=== PATIENT | male | born 1955 | race Caucasian/White ===

== ENCOUNTER 2024-07-31 17:18 | Emergency (ER) | payer MEDICARE, MEDICAID ==
[~2024-07-31] VITALS: Ht 175.3 cm; Wt 94.0 kg
[~2024-07-31 17:18] MED LIST: ETOMIDATE 2MG/ML 10ML VIAL IV ONE
[2024-07-31 17:51] LABS: BASOPHILS % 0.9 % (0.0-2.0); EOSINOPHILS % 1.4 % (0.0-5.0); HEMATOCRIT. 52.7 % (42.0-52.0); HEMOGLOBIN. 17.5 g/dL (14.0-18.0); LYMPHOCYTES % 37.2 % (20.0-50.0); MEAN CORPUSCULAR HEMOGLOBIN 32.5 pg (28.0-32.0); MEAN CORPUSCULAR HGB CONC 33.3 g/dL (31.0-37.0); MEAN CORPUSCULAR VOLUME 97.7 fL (80.0-94.0); MONOCYTES % 7.7 % (2.0-8.0); NEUTROPHILS % 52.8 % (40.0-76.0); PLATELET 262 x1000/uL (130-400); RED BLOOD CELL COUNT 5.39 mill/uL (4.7-6.1); RED CELL DISTRIBUTION WIDTH 12.4 % (11.6-14.6); WHITE BLOOD COUNT 14.2 x1000/uL (4.5-11.0)
[2024-07-31 17:58] LABS: CHLORIDE 100 mEq/L (98-107); POTASSIUM 3.1 mEq/L (3.5-5.1); SODIUM 139 mEq/L (136-145)
[2024-07-31 17:59] LABS: CARBON DIOXIDE 25 mEq/L (21-32)
[2024-07-31 18:00] LABS: CALCIUM 9.1 mg/dL (8.7-10.4)
[2024-07-31 18:04] LABS: CREATININE 0.9 mg/dL (0.6-1.3)
[2024-07-31 18:05] LABS: ETHANOL BLOOD 157 mg/dL (<10); GLUCOSE 134 mg/dL (70-105); UREA NITROGEN BLOOD 6 mg/dL (9-23)
[2024-07-31 18:06] LABS: ACETAMINOPHEN < 2 ug/mL (10-30); TROPONIN I HIGH SENSITIVITY < 4 ng/L (3.0-53)
[2024-07-31] MEDS: NICARDIPINE 40MG/200ML PREMIX 200 ML IV STA (18:43)
[2024-07-31] MEDS: LEVETIRACETAM 1000MG PREMIX 100 ML IV ONE (18:43)
[2024-07-31 19:45] VITALS: PULSE 126; RESP 18; O2SAT 99
[2024-07-31 19:48] LABS: *AMPHETAMINES SCREEN URINE NEGATIVE (NEGATIVE); *BARBITURATES SCREEN URINE NEGATIVE (NEGATIVE); *BENZODIAZEPINES SCREEN URINE NEGATIVE (NEGATIVE); *COCAINE SCREEN URINE NEGATIVE (NEGATIVE); CANNABINOID URINE SCREEN NEGATIVE (NEGATIVE); METHADONE URINE SCREEN NEGATIVE (NEGATIVE); OPIATES URINE SCREEN NEGATIVE (NEGATIVE); PHENCYCLIDINE URINE SCREEN NEGATIVE (NEGATIVE)
[2024-07-31 19:49] LABS: ECSTASY MDMA SCREEN URINE NEGATIVE (NEGATIVE)
[2024-07-31 19:50] VITALS: O2SAT 100
[2024-07-31 19:50] LABS: PARTIAL THROMBOPLASTIN TIME 25.7 sec (23.4-31.0)
[2024-07-31] MEDS: ROCURONIUM BROMIDE 10MG/ML VIAL 5ML IV ONE (19:50)
[2024-07-31] MEDS: ETOMIDATE 2MG/ML 10ML VIAL IV ONE (19:50)
[2024-07-31] MEDS: PROPOFOL 10MG/ML 100ML 100 ML IV ONE (19:50)
[2024-07-31 20:00] LABS: CLARITY URINE CLEAR (CLEAR); COLOR URINE YELLOW (YELLOW); GLUCOSE URINE NEGATIVE (NEGATIVE); KETONES URINE NEGATIVE (NEGATIVE); LEUKOCYTE ESTERASE URINE NEGATIVE (NEGATIVE); NITRITE URINE NEGATIVE (NEGATIVE); OCCULT BLOOD URINE NEGATIVE (NEGATIVE); PROTEIN URINE 1+ (NEGATIVE); SPECIFIC GRAVITY URINE 1.022 (1.005-1.030); UROBILINOGEN URINE 0.2 E.U./dL (0.2-1.0)
[2024-07-31 20:27] LABS: BACTERIA URINE NONE SEEN; RBC URINE NONE SEEN /hpf (0-2); SQUAMOUS EPITHELIAL CELL URINE RARE /lpf (RARE/1+); WBC URINE NONE SEEN /hpf (0-2)
[2024-07-31 20:45] LABS: TROPONIN I HIGH SENSITIVITY < 4 ng/L (3.0-53)
[2024-07-31 20:50] VITALS: BP 164/91; PULSE 117; RESP 18; TEMP 36.7; O2SAT 97
[2024-07-31] MEDS ORDERED: IOHEXOL-350 100 ML BOTTLE ONE (23:40)
== END 2024-07-31 21:03 | disposition short-term general hospital (02) ==
LOC: ER 17:18
DX: S06.6XAA Traumatic subarachnoid hemorrhage with loss of consciousness status unknown, initial encounter (principal); S06.5XAA Traumatic subdural hemorrhage with loss of consciousness status unknown, initial encounter; Z79.899 Other long term (current) drug therapy; X58.XXXA Exposure to other specified factors, initial encounter; Y93.89 Activity, other specified; Y92.89 Other specified places as the place of occurrence of the external cause; Y99.8 Other external cause status
CPT/HCPCS: 80305; 80048; 81003; 80307; 80329; 80320; 82962; 85025; 85610; 85730; 84484; 36415; 71045; 70496; 70498; 70450; 31500; 93005; 96368; 96365; 99291; 99292; Q9967; J1953; J3490 ×2; J2704; 94002; 94070; G0480